=== PATIENT | female | born 1950 | race Caucasian/White ===

== ENCOUNTER 2016-07-06 15:20 | Inpatient (IN) | payer MEDICARE ==
[~2016-07-06] VITALS: Ht 167.6 cm; Wt 88.4 kg
[~2016-07-06 15:20] MED LIST: ALBUAER3 INH; BENZ100 PO; CALC1TAB87 PO; DULO20 PO; LACTCAP8 PO; LEVO50TA4 PO; MULT-136 PO; NEXI20CA PO; PRED20 PO; ZITHTAB PO
[2016-07-07] MEDS ORDERED: VANCOMYCIN 1000 MG/NS 250 ML (for <70 kg) IV SCH ×2 (08:00)
[2016-07-07] MEDS ORDERED: DEXAMETHASONE SOD PHOS PF 10 MG/ML VIAL IV SCH (08:00)
[2016-07-07] MEDS ORDERED: ceFAZolin 2 GM PREMIX 50 ML IV SCH (08:00)
[2016-07-07] MEDS ORDERED: TRANEXAMIC ACID IV SCH ×2 (08:00→12:15)
[2016-07-07] MEDS ORDERED: ROPIVACAINE PERI-ARTICULAR INJECTION. P-ARTICULR SCH ×5 (08:00)
[2016-07-07] MEDS ORDERED: POVIDONE IODINE 7.5% SCRUB 118 ML BOTTLE TOPICAL SCH (08:00)
[2016-07-07] MEDS ORDERED: SODIUM CHLORIDE 0.9% IV SCH ×2 (08:00→12:15)
[2016-07-07] MEDS ORDERED: POVIDONE IODINE 5% (ANTISEPSIS KIT) 4 APPLICATIONS EACH NARE PRN (08:15)
[2016-07-07] MEDS ORDERED: METOPROLOL TARTRATE 25 MG TAB PO PRN (08:15)
[2016-07-07] MEDS ORDERED: INSULIN HUMAN REGULAR 1,000 UNITS/10 ML VIAL SQ PRN (08:15)
[2016-07-07] MEDS ORDERED: SODIUM CHLORID 0.9% 500 ML IV PRN (08:15)
[2016-07-07] MEDS ORDERED: LACTATED RINGER'S 1000 ML IV PRN (08:15)
[2016-07-07] MEDS ORDERED: CHLORHEXIDINE GLUCONATE 2 % 1 PACK (2 CLOTHS) TOPICAL PRN (08:15)
[2016-07-07] MEDS ORDERED: TURM500C PO (08:42)
[2016-07-07] MEDS ORDERED: IBUP400T20 PO (08:42)
[2016-07-07] MEDS ORDERED: DEXAMETHASONE SOD PHOS 20 MG/5 ML VIAL ONE (08:45)
[2016-07-07 08:48] VITALS: BP 125/76; PULSE 72; RESP 18; TEMP 97.6; O2SAT 96
[2016-07-07] MEDS ORDERED: BUPIVACAINE LIPOSOME PF 1.3% 20 ML VIAL ONE (09:10)
[2016-07-07] MEDS ORDERED: MIDAZOLAM HCL 2 MG/2 ML VIAL ONE (09:47)
[2016-07-07] MEDS ORDERED: ACETAMINOPHEN 1000 MG/100 ML VIAL IV ONE (09:47)
[2016-07-07] MEDS ORDERED: FAMOTIDINE 20 MG/2 ML VIAL ONE (09:48)
[2016-07-07] MEDS ORDERED: fentaNYL CITRATE 250 MCG/5 ML AMP ONE (09:48)
[2016-07-07] MEDS: GENTAMICIN SULFATE 80 MG/2 ML VIAL ONE ×2 (11:01→11:05)
[2016-07-07] MEDS ORDERED: PROPOFOL 200 MG/20 ML AMP IV ONE (12:00)
[2016-07-07] MEDS ORDERED: ePHEDrine/NS 25 MG/5 ML SYR IV ONE (12:00)
[2016-07-07] MEDS ORDERED: ONDANSETRON HCL 4 MG/2 ML VIAL IV PUSH ONE (12:00)
[2016-07-07] MEDS ORDERED: LACTATED RINGER'S 1000 ML INJ 1,000 ML IV ONE (12:00)
[2016-07-07] MEDS ORDERED: NEOSTIGMINE 3 MG/3 ML SYR IV ONE (12:00)
[2016-07-07] MEDS ORDERED: BISACODYL 10 MG SUPP RECTAL PRN (12:15)
[2016-07-07] MEDS ORDERED: MORPHINE SULFATE 4 MG/ML INJ IV PUSH PRN (12:15)
[2016-07-07] MEDS ORDERED: SODIUM CHLORIDE 0.9% FLUSH 5 ML FLUSH IVF PRN (12:15)
[2016-07-07] MEDS ORDERED: BENZONATATE 100 MG CAP PO PRN (12:15)
[2016-07-07] MEDS ORDERED: NALOXONE HCL 0.4 MG/ML AMP IV PRN (12:15)
[2016-07-07] MEDS ORDERED: ZOLPIDEM TARTRATE 5 MG TAB PO PRN (12:15)
[2016-07-07] MEDS ORDERED: ALBUTEROL SULFATE 90 MCG/ACT HFA 8 GM INHALER INH PRN (12:15)
[2016-07-07] MEDS ORDERED: Post-op Orders (for Pharmacy) MISC XX ONE (12:15)
[2016-07-07] MEDS ORDERED: diphenhydrAMINE HCL 50 MG/ML VIAL IV PRN (12:15)
[2016-07-07] MEDS ORDERED: MAGNESIUM HYDROXIDE SUSP 30 ML CUP PO PRN (12:15)
[2016-07-07] MEDS ORDERED: ONDANSETRON HCL 4 MG/2 ML VIAL IVP PRN (12:15)
[2016-07-07] MEDS ORDERED: ALUMINUM/MAGNESIUM/SIMETH 30 ML CUP PO PRN (12:15)
--- NOTE | 2016-07-07 12:17 | PD.OP ---
Operative Report Date of Surgery: July 07, 2016 Preoperative Diagnosis: Left knee severe osteoarthritis Postoperative Diagnosis: Same Procedure: Left total knee arthroplasty Anesthesia: Regional and general Surgeon: Juancarlos Bryson Unloading Checker(s): LETTY Pruitt The surgical procedure was assisted by my Advanced Registered Nurse Practitioner. My BUILDING RENTAL SUPERINTENDENT presence was necessary throughout this case for the manipulation and positioning of the surgical extremity. My BUILDING RENTAL SUPERINTENDENT was assisting me throughout the duration of this procedure. The skill set of an Advance Registered Nurse Practitioner was medically necessary to complete this procedure. During the surgical case, the surgical aide was working at the back table and the Advance Registered Nurse Practitioner was directly assisting me. Operation and Findings: IMPLANTS: DePuy Attune: Patella: size 35. Femur, posterior stabilized size 6. Tibia, rotating platform size 5. Tibial insert, rotating platform, posterior stabilized size 7 mm thickness. ESTIMATED BLOOD LOSS: 300 cc TOURNIQUET TIME: 14 minutes at 250 mmHg pressure. JUSTIFICATION FOR PROCEDURE: The patient has end-stage osteoarthritis to the knee. There is an attached conservative measures pathway form in the chart that describes the nonoperative measures that were undertaken prior to consideration of surgical management. The patient understood the risks and benefits of surgical management. See my office notes for further details PROCEDURE: The patient was brought back to the operative theatre. Adequate anesthesia was obtained. The patient received intravenous vancomycin and Ancef. The lower extremity was prepped and draped in the usual sterile fashion.The leg was exsanguinated, the tourniquet was raised. Note that the tourniquet was released after 14 minutes as it was not performing adequately. A standard anterior incision was performed followed by medial parapatellar arthrotomy was performed. End-stage arthritis was identified. Osteotomy of the patella was performed. We drilled holes for the patella. We trialed the patella component. We placed an intramedullary guide into the distal femur. We ultimately resected 11 mm off of the distal femur in 5 degrees of valgus. The remnants of the ACL and PCL were resected. Osteotomy of the proximal tibia was performed, resecting 5 mm off of the medial side. This was done with 3 degrees of posterior slope using an extramedullary guide. The distal end of the guide was placed in the mid aspect of the ankle. The femur was sized, and four chamfer cuts were completed in 3 of external rotation. We then cut the central box in the distal femur to replace the PCL. We resected the remnants of the menisci and removed osteophytes off of the femur and tibia. We then trialed the knee. We punched the tibia for the keel, and then used standard technique to cement in components. Excess cement was removed. We trialed the knee again and the final polyethylene thickness was chosen to provide extension to 0 degrees, and flexion of 140 degrees to gravity. The ligaments were appropriately balanced. Lateral release was necessary to obtain excellent patellofemoral tracking. An intra-articular injection of a ropivacaine cocktail was injected. The posterior knee was inspected for excess cement, which was removed. The final polyethylene was put into position after thorough irrigation. We then closed deep fascia with a #2 Stratafix followed by skin with 2-0 Vicryl followed by miguel. Postop plan is to weight-bear as tolerated. DVT prophylaxis will be performed with Doreen, [facility] kevin, early mobilization, and Lovenox followed by aspirin. Juancarlos Bryson MD July 07, 2016 12:17
[2016-07-07] MEDS ORDERED: ENOX40P SQ (12:20)
[2016-07-07] MEDS ORDERED: NORC5TAB PO (12:20)
[2016-07-07] MEDS ORDERED: ASPI325T PO (12:20)
--- NOTE | 2016-07-07 12:40 | HHI.DCPOC ---
Discharge Care Plan Diagnosis: (1) Status post total knee replacement, left (2) Primary localized osteoarthrosis, lower leg Your Health Problems Are: Difficulty with ADL Goals to Promote Your Health * To prevent worsening of your condition and complications * To maintain your health at the optimal level Directions to Meet Your Goals Take your medications as prescribed Follow your dietary instruction Follow activity as directed Keep your appointments as scheduled Take your immunizations and boosters as scheduled If your symptoms worsen call your PCP, if no PCP go to Urgent Care Center or Emergency Room Smoking is Dangerous to Your Health. Avoid second hand smoke Call the 24-hour hour crisis hotline for domestic abuse at Zander Leslie July 07, 2016 12:40
--- NOTE | 2016-07-07 12:41 | HHI.FF ---
Face to Face Verification Diagnosis: (1) Primary localized osteoarthrosis, lower leg (2) Status post total knee replacement, left Physical Therapy Gait training, Transfer training, bed to chair Knee: Total knee Left LE Weight Bearing: WB as tolerated Left LE Range of Motion: Active ROM Nursing Nursing: Bhavin teaching, Dressing changes Dressing Changes: Daily dressing change I have seen patient Leticia Mccann on 07/07/16. My clinical findings support the need for the requested home health care services because: Limited ability to care for self High risk of falls I certify that my clinical findings support that this patient is homebound because: Post-op weakness Unsteady gait/balance Zander Leslie July 07, 2016 12:41
[2016-07-07] MEDS ORDERED: CPMMACHINE (12:43)
[2016-07-07] MEDS ORDERED: WALKER WHEELS/F1 MIS (12:43)
[2016-07-07] MEDS ORDERED: COMMODE 3-IN-11 MIS (12:43)
[2016-07-07] MEDS ORDERED: *morphine SULFATE 8 MG/ML PERIprocedure ONLY ONE ×3 (12:53→13:11)
[2016-07-07] MEDS: SODIUM CHLOR 0.9% 1000 ML INJ 1,000 ML IV SCH ×2 (13:00→22:13)
[2016-07-07] MEDS ORDERED: DO NOT ADM ANY ANTICOAGULANT DRUGS PRN (13:15)
--- NOTE | 2016-07-07 14:12 | RADRPT ---
EXAM DATE/TIME: 07/07/2016 13:28 [facility] COMPARISON: No previous studies available for comparison. INDICATIONS : Post op left knee surgery. MEDICAL HISTORY : None. SURGICAL HISTORY : None. ENCOUNTER: Initial ACUITY: 1 day PAIN SCORE: 0/10 LOCATION: Left Knee. FINDINGS: Two view examination of the left knee demonstrates no evidence of fracture or dislocation. Left knee arthroplasty. Postsurgical changes. CONCLUSION: Left knee arthroplasty. iSlvestre Solano MD on July 07, 2016 at 14:10 Board Certified Radiologist. This report was verified electronically.
[2016-07-07 15:10] VITALS: BP 103/57; PULSE 81; RESP 20; TEMP 97.7; O2SAT 94
[2016-07-07 17:15] VITALS: O2SAT 94
[2016-07-07] MEDS: ACETAMINOPHEN/HYDROcodone 325 MG/5 MG TAB PO PRN (18:08)
--- NOTE | 2016-07-07 19:00 | MB ---
cc: ROBERT BERRY DATE OF CONSULTATION: 07/07/2016 DATE OF : 1950 REASON FOR CONSULTATION Medical management. HISTORY OF PRESENT ILLNESS This is a pleasant 66-year-old white female who has been struggling with osteoarthritis of her left knee. She had failed outpatient treatment and decided to have a left total knee arthroplasty. The patient is status post her surgical procedure today. She is resting in her room. She is drowsy but is responding to verbal stimuli. The patient has comorbidities such as obesity, bronchitis and occasionally constipation. We will assist with her medical management. PAST MEDICAL HISTORY 1. Obesity. 2. Bronchitis. 3. Osteoarthritis. 4. Thyroid disease. 5. Gastroesophageal reflux disease. PAST SURGICAL HISTORY 1. Gallbladder. 2. Dental implants. ALLERGIES NO KNOWN. MEDICATIONS Reviewed. 1. Prednisone. 2. Cymbalta. 3. Probiotics. 4. Tessalon Perls. 5. ProAir inhaler. 6. Vitamins. 7. Aspirin. 8. Motrin. 9. Pain management. 10. Turmeric. 11. Nexium. 12. Calcium. 13. Levothyroxine. SOCIAL HISTORY The patient is , currently lives in a home with her . She denies any tobacco but she does drink socially alcohol. No illicit drugs. REVIEW OF SYSTEMS A 12-point review was obtained, positives include what has been mentioned in the History of Present Illness, otherwise systems are negative. The patient does note some constipation for the last couple of days before her surgery. PHYSICAL EXAMINATION VITAL SIGNS: Temperature is 98.5, pulse 82, respirations 16, blood pressure 112/59, 02 sat 93 currently on nasal cannula at 3 liters. GENERAL: Obese white female, looks to be her stated age, resting in the bed. She is drowsy postop but does respond to verbal stimuli with short answers. SKIN: Her skin is warm and dry. Mildly pale mucous membranes. HEAD, EYES, EARS, NOSE AND THROAT: Atraumatic, normocephalic. PERRLA. Mucous membranes are slightly pale. Tongue is midline. NECK: Neck is supple. CARDIOVASCULAR: S1, S2. Regular, rate and rhythm. No murmurs, rubs or gallops. PULMONARY: Essentially clear anteriorly and posteriorly with no wheezes, rales or rhonchi. Her volumes are normal. ABDOMEN: Abdomen is round, soft, nontender, nondistended. Soft, active bowel sounds. MUSCULOSKELETAL: She is moving her upper extremities with purpose. There is some guarding to the left knee which is postop. Moving her right leg without any issues. She can wiggle the toes on her left leg. NEUROLOGIC: She is sleepy but alert enough to answer questions appropriately. She is a fair historian. Her voice is clear. Speech is normal. PSYCHIATRIC: Appropriate mood and affect. IMAGING Left knee x-ray shows left total knee arthroplasty. ASSESSMENT 1. Osteoarthritis, the patient is status post left total knee arthroplasty. 2. Obesity. 3. Gastroesophageal reflux disease. 4. History of thyroid disease. 5. History of acute bronchitis. PLAN 1. Monitor her medical management. 2. Her orthopedic surgeon will monitor postop care and pain management. 3. We will draw labs in the morning with special attention to her hemoglobin, white count, any signs of anemia or signs of infection. 4. The patient has been started on her medications. 5. We will monitor with bowel regimen especially since the patient has noted some constipation before coming in the hospital. The patient will be on Colace stool softeners but may possibly need a laxative tomorrow if her bowels have not moved in the next 24 hours. 6. Vital signs will be q.4. 7. The patient had a urinary catheter which shall be removed. We will monitor or any urinary retention or dysuria. 8. The patient will be out of bed with PT. 9. Discharge planning has been initiated for the patient's plan. The patient is hoping to go home and do her therapy at home. There is no family with her currently. This information has been explained to her. Thank you very much for this consult. DICTATED BY: Magalys Madden NP Robert Berry MD JP/AZUCENA /3:38 PM /6:32 PM PT SEEN AND EXAMINED ABOVE CHART REVIEWED INCLUDING LABS MEDS AND NOTES AND RAD DATA DW PT PLAN OF CARE DW MARKET INTELLIGENCE CONSULTANT REGGIE NELSON
[2016-07-07 20:00] VITALS: BP 96/53; PULSE 72; RESP 16; TEMP 97.8; O2SAT 93
[2016-07-07] MEDS: SODIUM CHLORIDE 0.9% FLUSH 5 ML FLUSH IVF SCH (21:00)
[2016-07-08 00:30] VITALS: BP 98/55; PULSE 80; RESP 16; TEMP 97.8; O2SAT 94
[2016-07-08] MEDS: ACETAMINOPHEN/HYDROcodone 325 MG/5 MG TAB PO PRN ×4 (00:42→15:40)
[2016-07-08 04:10] VITALS: BP 94/55; PULSE 69; RESP 16; TEMP 97.7; O2SAT 95
[2016-07-08 05:02] LABS: HEMATOCRIT 31.1 % (35.0-46.0); MEAN CELL VOLUME 93.2 FL (80.0-100.0); MEAN CORPUSCULAR HEMOGLOBIN 31.2 PG (27.0-34.0); MEAN CORPUSCULAR HGB CONC 33.5 % (32.0-36.0); PLATELET COUNT 231 TH/MM3 (150-450); RED BLOOD COUNT 3.34 MIL/MM3 (4.00-5.30); RED CELL DISTRIBUTION WIDTH 13.7 % (11.6-17.2); REVIEW FLAG FINAL; WHITE BLOOD COUNT 13.2 TH/MM3 (4.0-11.0)
[2016-07-08 05:27] LABS: BICARBONATE 28.4 MEQ/L (21.0-32.0)
[2016-07-08] MEDS ORDERED: LEVOTHYROXINE SODIUM 50 MCG TAB PO SCH (06:00)
[2016-07-08 06:24] VITALS: O2SAT 96
[2016-07-08] MEDS ORDERED: DEXAMETHASONE SOD PHOS 20 MG/5 ML VIAL IV ONE (07:45)
[2016-07-08 08:00] VITALS: BP 110/57; PULSE 83; RESP 16; TEMP 97.8; O2SAT 96
[2016-07-08] MEDS: SODIUM CHLORIDE 0.9% FLUSH 5 ML FLUSH IVF SCH (08:50)
[2016-07-08] MEDS: SODIUM CHLOR 0.9% 1000 ML INJ 1,000 ML IV SCH (08:50)
[2016-07-08] MEDS ORDERED: DULoxetine HCl DR 20 MG CAP PO SCH (09:00)
[2016-07-08] MEDS ORDERED: PANTOPRAZOLE SOD 20 MG DELAYED RELEASE TAB PO SCH (09:00)
[2016-07-08] MEDS ORDERED: predniSONE 20 MG TAB PO SCH (09:00)
--- NOTE | 2016-07-08 09:56 | HHI.PR ---
Subjective Subjective Remarks doing well, working with PT no dizziness no cp no sob no fever eating okay BP stable 94/55 no acute changes overnight Review of Systems Constitutional Constitutional Remarks 12 point review of systems completed, negative except as noted above Vitals/Results Intake & Output 07/07/16 07/07/16 07/08/16 15:00 23:00 07:00 Intake Total 1750 ml 700 ml Output Total 800 ml 400 ml Balance 950 ml 300 ml Intake Oral 700 ml IV Total 250 ml Other 1500 ml Output Urine Total 600 ml 400 ml Estimated Blood Loss 200 ml # Bowel Movements 0 Vital Signs Vital Signs Date Time Temp Pulse Resp B/P Pulse Ox O2 Delivery O2 Flow Rate FiO2 07/08/16 06:24 96 07/08/16 04:10 97.7 69 16 94/55 95 07/08/16 00:30 97.8 80 16 98/55 94 07/07/16 20:00 97.8 72 16 96/53 93 07/07/16 17:15 94 2.00 07/07/16 15:10 97.7 81 20 103/57 94 07/07/16 14:15 98.4 91 17 102/56 95 Nasal Cannula 3 07/07/16 13:45 82 15 112/59 93 Nasal Cannula 3 07/07/16 13:30 86 16 113/55 93 Nasal Cannula 3 07/07/16 13:15 81 14 114/55 95 Nasal Cannula 3 07/07/16 13:00 81 15 112/56 94 Nasal Cannula 3 07/07/16 12:45 98.5 94 15 129/68 94 Nasal Cannula 3 CBC/BMP: 07/08/16 0443 07/08/16 0443 Lab Results Laboratory Tests Test 07/08/16 04:43 White Blood Count 13.2 TH/MM3 Red Blood Count 3.34 MIL/MM3 Hemoglobin 10.4 GM/DL Hematocrit 31.1 % Mean Corpuscular Volume 93.2 FL Mean Corpuscular Hemoglobin 31.2 PG Mean Corpuscular Hemoglobin 33.5 % Concent Red Cell Distribution Width 13.7 % Platelet Count 231 TH/MM3 Mean Platelet Volume 7.4 FL Sodium Level 140 MEQ/L Potassium Level 4.0 MEQ/L Chloride Level 104 MEQ/L Carbon Dioxide Level 28.4 MEQ/L Anion Gap 8 MEQ/L Blood Urea Nitrogen 11 MG/DL Creatinine 0.90 MG/DL Estimat Glomerular Filtration 62 ML/MIN Rate Random Glucose 116 MG/DL Calcium Level 7.7 MG/DL Physical Exam General General Appearance: Well Developed, Well Nourished, No Acute Distress, Comfortable Eyes Eye Exam: Pupils Equal, Pupils Reactive Ears & Nose Ears & Nose Exam: Nasal Mucosa [place] Throat Throat Exam: Oral Mucosa [place] & Moist Neck Neck Exam: Neck Supple, Trachea Midline Pulmonary Resp Exam: Clear Bilaterally Cardiology CV Exam: Regular, Good Perfusion Gastrointestinal/Abdomen GI Exam: Soft, Non-Tender, Bowel Sounds Present, Non-Distended Musculoskeletal MS Exam: Joints Intact MS Remarks left knee dressing D/I Integumentary Skin Exam: Warm, Dry Extremeties Extremities Exam: No Edema, Pedal Pulses Palpable Neurologic Neuro Exam: Alert, Awake, Oriented, Speech Clear, Cruise Coordinator Equal Psychiatric Psych Exam: Appropriate Responses VTE Prophylaxis VTE Prophylaxis Meds: Lovenox Assessment/Plan Assessment/Plan 1. Osteoarthritis, the patient is status post left total knee arthroplasty. 2. Obesity. 3. Gastroesophageal reflux disease. 4. History of thyroid disease. Plan Continue postoperative orthopedic care Lovenox for DVT prophylaxis Bowel regimen Physical therapy Pain management Blood pressure stable, patient is asymptomatic, this morning 96/49 Continue with prednisone 40 mg by mouth daily, received Decadron 10 mg. Orthopedics currently managing steroids H&H stable, 10.4/31.1 CBC in the a.m. Continue Lovenox for DVT prophylaxis CBC in the morning Discussed with patient Discussed with Dr. Berry Discussed with RN This patient was seen by myself and Dr. Berry, dizziness note is written on his behalf Toña Rodriguez July 08, 2016 09:56
[2016-07-08] MEDS ORDERED: ENOXAPARIN SODIUM 40 MG/0.4 ML SYRINGE SQ SCH (11:30)
[2016-07-08 12:00] VITALS: BP 108/69; PULSE 97; RESP 16; TEMP 97.6; O2SAT 94
--- NOTE | 2016-07-08 12:21 | PD.ORT.PN ---
Subjective Post Op Day #: 1 Subjective Remarks Patient is resting in bed with mild pain to the left knee. Patient is ambulatory and voiding. Patient is requesting discharge home today. Objective Vitals Vital Signs Date Time Temp Pulse Resp B/P Pulse Ox O2 Delivery O2 Flow Rate FiO2 07/08/16 08:00 97.8 83 16 110/57 96 07/08/16 06:24 96 07/08/16 04:10 97.7 69 16 94/55 95 07/08/16 00:30 97.8 80 16 98/55 94 07/07/16 20:00 97.8 72 16 96/53 93 07/07/16 17:15 94 2.00 07/07/16 15:10 97.7 81 20 103/57 94 07/07/16 14:15 98.4 91 17 102/56 95 Nasal Cannula 3 07/07/16 13:45 82 15 112/59 93 Nasal Cannula 3 07/07/16 13:30 86 16 113/55 93 Nasal Cannula 3 07/07/16 13:15 81 14 114/55 95 Nasal Cannula 3 07/07/16 13:00 81 15 112/56 94 Nasal Cannula 3 07/07/16 12:45 98.5 94 15 129/68 94 Nasal Cannula 3 I/O 07/07/16 07/07/16 07/07/16 07/08/16 07/08/16 07/08/16 06:59 14:59 22:59 06:59 14:59 22:59 Intake Total 1750 ml 700 ml 720 ml Output Total 800 ml 400 ml 1950 ml Balance 950 ml 300 ml -1230 ml Intake Oral 700 ml 720 ml IV Total 250 ml Other 1500 ml Output Urine Total 600 ml 400 ml 1950 ml Estimated Blood Loss 200 ml # Bowel Movements 0 0 Result Diagram: 07/08/16 0443 07/08/16 0443 Imaging Last 24 hours Impressions Knee X-Ray 07/07/16 1213 Signed Impressions: Service Date/Time: Thursday, July 07, 2016 13:28 - CONCLUSION: Left knee arthroplasty. Silvestre Solano MD Procedures Left TKA Objective Remarks The patient's dressing was changed today with scant serosanguineous drainage. Incision is well approximated with surgical clips intact. No redness or s/s of infection. EHL/TA/G intact. 2+ pedal pulse. No calf swelling or tenderness. + SILT. Minimal swelling. Assessment & Plan Ortho Post Op Day #: 1 Problem List: Assessment and Plan POD #1: Left TKA 1. WBAT LLE 2. Lovenox for DVT prophylaxis 3. Ice to the left knee PRN 4. Patient is stable for discharge home with home health today. Zander Leslie July 08, 2016 12:21
[2016-07-08] MEDS ORDERED: MULTIVITAMINS/MINERALS THERAPEUTIC TAB PO SCH (21:00)
[2016-07-08] MEDS ORDERED: DOCUSATE SODIUM 100 MG CAP PO SCH (21:00)
--- NOTE | 2016-07-12 21:44 | HHI.DS ---
Discharge Summary Admission Date July 07, 2016 at 07:28 Discharge Date: July 08, 2016 Admitting Diagnosis Primary localized OA, lower leg Status post total knee replacement, left Diagnosis: (1) Primary localized osteoarthrosis, lower leg Diagnosis: Principal (2) Status post total knee replacement, left Diagnosis: Principal Procedures Left TKA Brief History This is a 66 year old female patient with severe OA of the left knee. CBC/BMP: 07/08/16 0443 07/08/16 0443 PE at Discharge The patient's dressing was changed today with scant serosanguineous drainage. Incision is well approximated with surgical clips intact. No redness or s/s of infection. EHL/TA/G intact. 2+ pedal pulse. No calf swelling or tenderness. + SILT. Minimal swelling. Hospital Course The patient was admitted to the hospital with severe left knee OA to have a left TKA. The patient's surgery went well without complications. The patient is WBAT. The patient was placed on a regular diet post op. The patient was placed on Lovenox for DVT prophylaxis. The patient was discharged home with home health and will f/u with Dr. Bryson in 1-2 weeks. Pt Condition on Discharge: Stable Discharge Disposition: Disch w/ Home Health Serv Discharge Instructions Diet Instructions: As Tolerated, No Restrictions Activities You Can Perform: Weight Bearing as Darlyn Activities to Avoid: Strenuous Activity Follow up Referrals: Orthopedics with Juancarlos Bryson MD New Medications: Aspirin (Aspirin) 325 Mg Tab 325 MG PO DAILY Start Aspirin after Lovenox is completed. Prevent Blood Clot # 30 Ref 0 TAB Commode 3-in-1 (Commode 3-in-1) 1 Mis Mis 1 EA .ROUTE DIRECTED #1 Ref 0 EA CPM-Continuous Passive Motion Machine (CPM-Continuous Passive Motion Machine) 1 Ea Device 1 EA .ROUTE DIRECTED #1 Ref 0 EA Enoxaparin Inj (Lovenox Inj) 40 Mg/0.4 Ml Syr 40 MG SQ DAILY Start Aspirin after Lovenox is completed. Blood Clot Prevention # 10 Ref 0 SYRINGE Hydrocodone-Acetaminophen ([place]) 5-325 mg Tab 1-2 TAB PO Q4H PRN PAIN #60 Ref 0 TAB Walker with Front Wheels (Walker with Front Wheels) 1 Mis Mis 1 EA .ROUTE DIRECTED #1 Ref 0 EA Continued Medications: Albuterol 8.5 GM Inh (Proair Hfa 8.5 GM Inh) 90 Mcg/Act Aer 2 PUFF INH Q4-6H 108 mcg/actuation PRN SHORTNESS OF BREATH #1 Ref 0 INHALER Azithromycin (Zithromax Z-Mauricio) 250 Mg Dspk 250 MG PO DIRECTED 500 MG (2 tabs) day 1, then 1 tab days 2-5. Infection #1 Ref 0 DSPK Benzonatate (Tessalon Perles) 100 Mg Cap 200 MG PO TID PRN COUGH #60 Ref 0 CAP Calcium Carbonate-Cholecalciferol (Calcium 600 with Vitamin D) 600-400 mg-Unit Tab 2 TAB PO DAILY Calcium Supplement Ref [address] (Cymbalta DR) 20 Mg Capdr 20 MG PO DAILY #30 Ref [address] (Nexium) 20 Mg Capdr 20 MG PO DAILY Ref 0 CAP Lactobacillus Acidophilus (Probiotic) 1 Cap Cap 1 CAP PO TIDAC Nutritional Supplement #90 Ref 0 CAP Levothyroxine (Levothyroxine) 50 Mcg Tab 50 MCG PO DAILY Thyroid #30 Ref 0 TAB Multiple Vitamins W/ Iron (Multi Vitamin with Iron) 1 Tab Tab 1 TAB PO DAILY Nutritional Supplement #30 Ref 0 TAB Prednisone (Prednisone) 20 Mg Tab 40 MG PO DAILY Take 40 mg (2 tablets) daily for 5 days #10 Ref 0 TAB Discontinued Medications: Ibuprofen (Ibuprofen) 400 Mg Tab 400 MG PO DAILY PRN PAIN 1 TO 10 AND/OR AGITATION Ref 0 TAB Turmeric (Curcuma Longa) (Turmeric) 500 Mg Cap 500 MG PO BID Nutritional Supplement Ref 0 CAP Zander Leslie July 12, 2016 21:44
== END 2016-07-08 15:51 | disposition home health service (06) | DRG 470 ==
LOC: HSDI 07-07 07:28 → N06B 07-07 14:40
PROVIDERS: ADMIT Orthopaedic Surgery; ATTEND Orthopaedic Surgery
PROC: 0SRD0J9 Replacement of Left Knee Joint with Synthetic Substitute, Cemented, Open Approach (ICD-10-PCS; principal; 2016-07-07 10:04)
DX: M17.12 Unilateral primary osteoarthritis, left knee (principal); E03.9 Hypothyroidism, unspecified; E66.9 Obesity, unspecified; K59.00 Constipation, unspecified; K21.9 Gastro-esophageal reflux disease without esophagitis; Z68.31 Body mass index [BMI] 31.0-31.9, adult
CPT/HCPCS: 73560; 80048; 85027; 86850; 86900; 86901; 94150; C1776; C9290; J0131; J0171; J0690; J0735; J1100; J1580; J1650; J1885; J2250; J2270; J2405; J2710; J2795; J3010; J7030; J7120; L1830